=== PATIENT | female | born 1950 ===

== ENCOUNTER 2018-09-22 15:51 | Emergency (ER) | payer MEDICARE, OTHER ==
[2018-09-22 16:12] VITALS: RESP 18; BMI 24.0
[2018-09-22] MEDS ORDERED: Lidocaine 5% Patch TD STA (17:39)
[2018-09-22] MEDS ORDERED: Lidocaine 5% Patch TD ONE (18:00)
--- NOTE | 2018-09-22 18:27 | C.PDOC ---
History Of Present Illness 67 year old female presents to the ED for evaluation of back pain and leg pain x 1 week. Patient reports feeling a pins and needles sensation that starts at the bottom of her feet and radiates straight up to her thigh. She reports pain to the back of her legs. She has been taking Gabapentin three times a day as prescribed by her PMD at home without relief. Patient denies trauma/injury, urinary/bowel incontinence, extremity numbness/weakness. History obtained via weight reduction specialist secondary to language barrier. PMD: Dr. Pacheco Time Seen by Provider: 09/22/18 16:25 Chief Complaint (Nursing): Lower Extremity Problem/Injury History Per: Patient, Solution Engineer ([id number]) History/Exam Limitations: language barrier Onset/Duration Of Symptoms: Days Current Symptoms Are (Timing): Still Present Additional History Per: Patient Past Medical History Reviewed: Historical Data, Nursing Documentation, Vital Signs Vital Signs: Last Vital Signs Temp 98 F 09/22/18 16:06 Pulse 73 09/22/18 16:06 Resp 18 09/22/18 16:06 BP 166/83 H 09/22/18 16:06 Pulse Ox 98 09/22/18 16:06 - Medical History PMH: Asthma, Gastritis (ulcers), HTN, Osteoporosis Surgical History: No Surg Hx Family History: States: Unknown Family Hx - Social History Hx Tobacco Use: No Hx Alcohol Use: No Hx Substance Use: No - Immunization History Hx Tetanus Toxoid Vaccination: No Hx Influenza Vaccination: No Hx Pneumococcal Vaccination: No Review Of Systems Constitutional: Negative for: Fever, Chills, Weakness Genitourinary: Negative for: Incontinence Musculoskeletal: Positive for: Back Pain, Leg Pain Skin: Negative for: Rash, Lesions, Jaundice, Bruising Neurological: Negative for: Weakness, Numbness Physical Exam - Physical Exam Appears: Non-toxic, No Acute Distress Skin: Normal Color, Warm, Dry, No Ecchymosis Neck: Supple Back: No Vertebral Tenderness, No Paraspinal Tenderness Extremity: Normal ROM, Capillary Refill (less than 2 seconds ), Other (left- sided sciatic notch tenderness) Neurological/Psych: Oriented x3, Normal Speech, Normal Cognition, Normal Motor, Normal Sensation ED Course And Treatment O2 Sat by Pulse Oximetry: 98 (on RA) Pulse Ox Interpretation: Normal Medical Decision Making Medical Decision Making: Progress: Tylenol PO, Toradol IM, and Lidoderm TD administered. pt with back pain consistent with sciatica, tender at sciatic notch. given toradol , lidoderm patch in ed, feels much better. will d/c home with nsaids and tylenol Disposition Counseled Patient/Family Regarding: Diagnosis, Need For Followup, Rx Given - Disposition Referrals: Beth Fitzpatrick MD [Non-Staff] - Disposition: HOME/ ROUTINE Disposition Time: 18:26 Condition: IMPROVED Prescriptions: Acetaminophen [Tylenol 325mg tab] 650 mg PO Q4 #50 tab Ibuprofen [Motrin Tab] 400 mg PO Q6 #30 tab Instructions: Sciatica (DC), Sciatica Exercises Forms: Gen Discharge Inst Estonian, [employer] (Estonian) Print Language: CHILEAN - Clinical Impression Clinical Impression: Sciatica - PA / ROAD MANAGER / Resident Statement MD/DO has reviewed & agrees with the documentation as recorded. - Scribe Statement The provider has reviewed the documentation as recorded by the Scribe (Thelma Javier) All medical record entries made by the Scribe were at my direction and personally dictated by me. I have reviewed the chart and agree that the record accurately reflects my personal performance of the history, physical exam, m edical decision making, and the department course for this patient. I have also personally directed, reviewed, and agree with the discharge instructions and disposition.
[2018-09-22 18:44] VITALS: BP 148/80; PULSE 80; TEMP 98.1
[2018-09-22 18:45] VITALS: O2SAT 98
== END 2018-09-22 18:44 | disposition home or self-care (01) ==
LOC: C.ER 15:51
DX: M54.32 Sciatica, left side (principal)
CPT/HCPCS: 96372; 99283; J1885